=== PATIENT | male | born 1990 | race Caucasian/White ===

== ENCOUNTER 2017-03-06 16:23 | Emergency (ER) | payer BC, OTHER ==
[2017-03-06 16:30] VITALS: BP 148/93; PULSE 104; TEMP 98; BMI 22.6
[2017-03-06] MEDS ORDERED: AZITHROMYCIN 250 MG TABLET PO ONE (17:26)
[2017-03-06] MEDS ORDERED: cefTRIAXone SODIUM 1 GM VIAL IM ONE (17:26)
[2017-03-06] MEDS ORDERED: LIDOCAINE HCL 1%, 10 MG/ML (20ML VIAL) ONE (17:49)
[2017-03-06] MEDS ORDERED: AZITHROMYCIN 1 GM PACKET PO ONE (17:49)
--- NOTE | 2017-03-06 18:03 | PDOC ---
History of Present Illness - General Chief Complaint: Pain Stated Complaint: EVALUATION std Time Seen by Provider: 03/06/17 17:05 History Source: Patient Exam Limitations: No Limitations - History of Present Illness Initial Comments: 03/06/17 18:00 CC wants testing for STDs; was exposed to chlamydia Past History - Past Medical History Allergies/Adverse Reactions: Allergies Allergy/AdvReac Type Severity Reaction Status Date / Time seafood Allergy Uncoded 03/06/17 16:27 Home Medications: Ambulatory Orders Insulin Sliding Scale [Novolog Vial Sliding Scale -] 1 vial SQ TIDAC #1 units Insulin Glargine,Hum.rec.anlog [Lantus (nf)] 24 units SQ HS 03/06/17 Asthma: Yes Diabetes: Yes (iddm) - Psycho/Social/Smoking Cessation Hx Anxiety: No Suicidal Ideation: No Smoking History: Never smoked Have you smoked in the past 12 months: No Information on smoking cessation initiated: No Hx Alcohol Use: No Drug/Substance Use Hx: No Substance Use Type: None Hx Substance Use Treatment: No Review of Systems - Review of Systems HEENTM: No: Symptoms Reported : No: Symptoms Reported, Dysuria, Discharge, Hematuria *Physical Exam - Vital Signs Last Vital Signs Temp Pulse Resp BP Pulse Ox 98.0 F 104 H 18 148/93 100 03/06/17 16:28 03/06/17 16:28 03/06/17 16:28 03/06/17 16:28 03/06/17 16:28 - Physical Exam General Appearance: Yes: Appropriately Dressed, Apparent Distress HEENT: positive: TMs Normal Neck: positive: Supple. negative: Tender, Rigid Respiratory/Chest: positive: Lungs Clear ED Treatment Course - Medications Given in the ED: ED Medications Discontinued Medications Generic Name Dose Route Start Last Admin Trade Name Freq PRN Reason Stop Dose Admin Azithromycin 250 mg 03/06/17 17:26 03/06/17 17:58 Zithromax - PO 03/06/17 17:27 Not Given ONCE ONE Ceftriaxone Sodium 1 gm 03/06/17 17:26 03/06/17 17:58 Rocephin - IM 03/06/17 17:27 Not Given ONCE ONE Medical Decision Making - Medical Decision Making 03/06/17 18:01 tested for HIV and chlamydia and GC as requested; discussed STD subject concerns ; txed as noted *DC/Admit/Observation/Transfer Diagnosis at time of Disposition: Concern about sexually transmitted disease in male without diagnosis - Discharge Dispostion Disposition: HOME Condition at time of disposition: Stable Admit: No - Patient Instructions Additional Instructions: Please wait for HIV test results
[2017-03-06 18:19] LABS: HIV 1 & 2 AB NEGATIVE; HIV 1 AGp24 NEGATIVE
== END 2017-03-06 19:36 | disposition home or self-care (01) ==
LOC: JERFT 16:23
DX: Z11.3 Encounter for screening for infections with a predominantly sexual mode of transmission (principal); E10.9 Type 1 diabetes mellitus without complications; Z79.4 Long term (current) use of insulin; J45.909 Unspecified asthma, uncomplicated
CPT/HCPCS: 36415; 87389; 87491; 87591; 99281-25

== ENCOUNTER 2018-04-10 18:21 | Emergency (ER) | payer BC, OTHER ==
[2018-04-10 18:40] VITALS: BP 114/78; PULSE 98; TEMP 99; BMI 22.2
--- NOTE | 2018-04-10 18:40 | PDOC ---
Rapid Medical Evaluation Time Seen by Provider: 04/10/18 18:36 Medical Evaluation: Allergies Allergy/AdvReac Type Severity Reaction Status Date / Time shellfish derived Allergy Verified 04/10/18 18:36 seafood Allergy Uncoded 04/10/18 18:36 04/10/18 18:37 I have performed a brief in-person evaluation of this patient. The patient presents with a chief complaint of: IDDM, DKA, HA1c 11%, asthma, here w/ pilonial abscess, unable to be I&D in surgeon's office today so sent in by Dr Moscoso. Per pt, was told by Dr Moscoso that MD would come to ED to drain abscess Pertinent physical exam findings:Stable I have ordered the following:nothing The patient will proceed to the ED for further evaluation. Discharge Disposition - Diagnosis Pilonidal abscess - Referrals Referrals: Adrian Moscoso MD [Primary Care Provider] - - Patient Instructions - Post Discharge Activity
--- NOTE | 2018-04-10 19:29 | PDOC ---
History of Present Illness - General Chief Complaint: Wound Stated Complaint: SENT BY PCP Time Seen by Provider: 04/10/18 18:36 - History of Present Illness Initial Comments: 04/10/18 19:28 28-year-old male presents for evaluation of painful area about his sacrum. He was seen in the general surgeon's office today who attempted an I&D of a pilonidal cyst/abscess but the patient states he was unable to tolerated in the office. Is an insulin-dependent diabetic. He has no systemic symptoms. Past History - Past Medical History Allergies/Adverse Reactions: Allergies Allergy/AdvReac Type Severity Reaction Status Date / Time shellfish derived Allergy Verified 04/10/18 18:36 seafood Allergy Uncoded 04/10/18 18:36 Home Medications: Ambulatory Orders Insulin Sliding Scale [Novolog Vial Sliding Scale -] 1 vial SQ TIDAC #1 units Insulin Glargine,Hum.rec.anlog [Lantus (nf)] 28 units SQ HS 03/06/17 Albuterol Sulfate Inhaler - [Ventolin HFA Inhaler -] 2 inh PO Q4H PRN 04/10/18 Amox-Tr/K Cl [Augmentin - 875Mg Tablet] 1 tab PO BID #20 tablet 04/10/18 Asthma: Yes COPD: No Diabetes: Yes (iddm) - Suicide/Smoking/Psychosocial Hx Smoking History: Never smoked Have you smoked in the past 12 months: No Hx Alcohol Use: No Drug/Substance Use Hx: No Substance Use Type: None Hx Substance Use Treatment: No Review of Systems - Review of Systems Integumentary: Yes: See HPI, Lesions All Other Systems: Reviewed and Negative *Physical Exam - Vital Signs Last Vital Signs Temp Pulse Resp BP Pulse Ox 99 F 98 H 16 114/78 98 04/10/18 18:37 04/10/18 18:37 04/10/18 18:37 04/10/18 18:37 04/10/18 18:37 - Physical Exam Comments: There is an area of induration at the midline at the top of the buttocks. There is no drainage there is no fluctuance there is mild warmth. No appreciable erythema. 04/10/18 19:29 Medical Decision Making - Medical Decision Making Call placed to general surgery at this time 04/10/18 19:29 04/10/18 19:41 Dr Moscoso has come to the ER to evaluate the patient and I&D the abscess *DC/Admit/Observation/Transfer Diagnosis at time of Disposition: Pilonidal abscess - Discharge Dispostion Disposition: HOME Condition at time of disposition: Stable Decision to Admit order: No - Prescriptions Prescriptions: Amox-Tr/K Cl [Augmentin - 875Mg Tablet] 1 tab PO BID #20 tablet - Referrals Referrals: Adrian Moscoso MD [Primary Care Provider] - - Patient Instructions Printed Discharge Instructions: DI for Incision and Drainage of a Skin Abscess Additional Instructions: Please take the antibiotics as directed. Return to the emergency room should symptoms worsen or go unresolved. Follow-up with as scheduled - Post Discharge Activity
[2018-04-10] MEDS ORDERED: LIDOCAINE HCL 1%, 10 MG/ML (20ML VIAL) ONE (19:45)
--- NOTE | 2018-04-10 20:07 | PROC ---
Procedure Note Procedure: Procedure: Incision and drainage of pilonidal abscess, under local anesthesia done in [facility]. Procedure: Patient identified, he was seen in my office earlier , and felt nauseous and was sent to the Er for incision and drainage, under local anesthesia. 1% lidocaine was injected into the skin around the pilonidal sinus and abscess. after cleansing the area with betadine solution. With a no. 15 blade , a vertical incision was made over the swelling. About 5- 8 ml. of pus was evacuated. A culture swab was obtained and pus sent for culture and antibiotic sensitivity. Wound was irrigated and packed with iodoform soaked gauze, dressing pplied. He will be followed in my office. Antibiotics prescribed. Patient tolerated the procedure well. Minimal blood loss.
== END 2018-04-10 20:22 | disposition home or self-care (01) ==
LOC: JERFT 18:21
PROC: 0H98XZZ Drainage of Buttock Skin, External Approach (ICD-10-PCS; principal; 2018-04-10)
DX: L05.01 Pilonidal cyst with abscess (principal)
CPT/HCPCS: 87070; 87076; 87186; 87205; 99281-25

== ENCOUNTER 2023-11-18 23:12 | Emergency (ER) | payer OTHER ==
[2023-11-18 23:21] VITALS: BP 138/78; PULSE 89; RESP 18; TEMP 98; BMI 27.2
== END 2023-11-19 00:06 | disposition home or self-care (01) ==
LOC: JER 23:12
DX: Z76.0 Encounter for issue of repeat prescription (principal)
CPT/HCPCS: 99281-25